=== PATIENT | female | born 1960 | race Caucasian/White ===

== ENCOUNTER 2018-03-30 05:52 | Day surgery (SDC) | payer BC ==
[~2018-03-30] VITALS: Ht 162.6 cm; Wt 56.0 kg
[~2018-03-30 05:52] MED LIST: ADVIL200 MG PO; CENTRUM ADULTS1 EACH PO; CITRACAL-VIT D1 EACH PO; LO-DOSE ASPIRIN81 M1 PO; SYNTHROID50 MCG PO; [UNRECOGNIZED DRUG - OTHER] PO
[2018-03-30 06:49] VITALS: BP 140/79
[2018-03-30 09:15] VITALS: BP 162/77
[2018-03-30 09:47] VITALS: BP 158/82
== END 2018-03-30 10:00 | disposition home or self-care (01) ==
LOC: SDC 05:52
DX: H35.341 Macular cyst, hole, or pseudohole, right eye (principal); E03.9 Hypothyroidism, unspecified; Z88.0 Allergy status to penicillin; Z79.82 Long term (current) use of aspirin
CPT/HCPCS: J0690; J1885; J3370